=== PATIENT | female | born 1985 | race Two or more races ===

== ENCOUNTER → 2024-12-28 | Outpatient (CLI) | payer MEDICAID, SELFPAY ==
--- NOTE | 2024-12-28 14:00 | XR_ITS ---
Examination: Transvaginal ultrasound of the pelvis, complete Technique: Transvaginal sonographic images pelvis performed using ordonez scale imaging Exam date and time: December 2024 1357 hrs. Indications: History uterine mass 3.6 cm ultrasound examination 06/22/2022 Findings: Uterus 8.7 cm and sagittal sections. Uterine fundal mass 4.6 x 3.5 x 5.2 cm Right ovary 2.5 x 1.4 x 2.4 cm arterial flow Left ovary 3.6 x 2.7 x 3.4 cm 30 mm cyst with free fluid, mild Impression: Uterine fundal mass 4.6 x 3.5 x 5.2 cm, differential would include malignant neoplasm uterus Recommend MRI pelvis follow-up pre and postcontrast
== END | disposition home or self-care (01) ==
PROVIDERS: PCP Physician Assistant; Referring Provider Physician Assistant; Visit Provider Physician Assistant
DX: R19.00 Intra-abdominal and pelvic swelling, mass and lump, unspecified site (principal)
CPT/HCPCS: 76830

== ENCOUNTER → 2025-02-09 | Outpatient (CLI) | payer MEDICAID, SELFPAY ==
[2025-02-07 18:34] LABS: HCG Qualitative,Urine Negative
--- NOTE | 2025-02-09 12:45 | XR_ITS ---
Examination: MRI pelvis with intravenous contrast. MRI pelvis without intravenous contrast. Date and time of exam: February 09, 2025 at 1351 hours INDICATIONS: Abdominal pain with menses 2 years, uterine fundal mass 4.6 x 3.5 x 5.2 cm on pelvic sonogram December 28, 2024 Technique: Multiple axial, sagittal and coronal sections of the pelvis obtained. Transverse images, TR 6020, TE 107. T1 weighted transverse images, TR 582, TE 9.5. T2-weighted sagittal images, TR 4000, TE 105. T2-weighted sagittal images, TR 4000, TE 5. Coronal images, TR 4210, TE 107. Axial and coronal images are obtained post 15 cc intravenous injection, gadolinium. Findings: Uterus 9 x 5 x 4 cm Enhancing uterine fundal mass, replacing the fundus, 4.6 x 5.2 cm No adnexal mass No free fluid in the pelvis No common iliac or external iliac lymphadenopathy IMPRESSION: Enhancing uterine fundal mass, replacing the fundus, differential would include malignant neoplasm of the uterus, clinical correlation advised
== END | disposition home or self-care (01) ==
LOC: SMRI 12:17
PROVIDERS: PCP Physician Assistant; Referring Provider Physician Assistant; Visit Provider Physician Assistant
DX: N85.8 Other specified noninflammatory disorders of uterus (principal); Z32.00 Encounter for pregnancy test, result unknown
CPT/HCPCS: 72197; 81025; A9579